=== PATIENT | female | born 1995 | race Caucasian/White ===

== ENCOUNTER 2019-12-19 08:00 | Outpatient (CLI) | payer BC ==
[2019-12-20 10:21] LABS: MUDS CUTOFF CONCENTRATIONS CUTOFF CONC BELOW:
[2019-12-20 10:29] LABS: BILIRUBIN,URINE NEGATIVE (NEGATIVE); CLARITY,URINE CLOUDY (CLEAR); GLUCOSE, URINE (UA) NEGATIVE (NEGATIVE); KETONES,URINE (UA) NEGATIVE (NEGATIVE); LEUKOCYTE ESTERASE, URINE NEGATIVE (NEGATIVE); NITRITE,URINE NEGATIVE (NEGATIVE); OCCULT BLOOD,URINE SMALL (NEGATIVE); PH,URINE 5.5 PH (5.0-7.5); PROTEIN,URINE NEGATIVE (NEGATIVE); UROBILINOGEN,URINE 0.2 (NORMAL) E.U./dL (NORMAL)
[2019-12-20 10:37] LABS: AMORPHOUS SEDIMENT,UR Moderate /LPF; BACTERIA,URINE Few /HPF (None Seen); RBC,URINE 0-5 /HPF (0-5); SQUAMOUS EPITHELIAL CELL,UR FEW Squamous (<= Few)
[2019-12-20 10:38] LABS: AMPHETAMINE SCREEN,URINE NEGATIVE (NEGATIVE); BENZODIAZEPINES SCREEN, URINE NEGATIVE (NEGATIVE); COCAINE SCREEN URINE NEGATIVE (NEGATIVE); METHADONE SCREEN, URINE NEGATIVE (NEGATIVE); METHAMPHETAMINES SCREEN, URINE NEGATIVE (NEGATIVE); OPIATE SCREEN, URINE NEGATIVE (NEGATIVE); OXYCODONE SCREEN, URINE NEGATIVE (NEGATIVE); PROPOXYPHENE SCREEN, URINE NEGATIVE (NEGATIVE); TRICYCLIC ANTIDEPRESSANT,URINE NEGATIVE (NEGATIVE)
== END 2019-12-19 23:59 | disposition home or self-care (01) ==
LOC: LAB.R 08:00
PROVIDERS: ATTEND Obstetrics & Gynecology
DX: Z36.89 Encounter for other specified antenatal screening (principal)
CPT/HCPCS: 80306; 81001; 87086

== ENCOUNTER 2019-12-24 11:45 | Outpatient (CLI) | payer BC ==
[2019-12-24 18:24] LABS: BASOPHILS # (AUTO) 0.1 10^3/uL (0.0-0.1); BASOPHILS % (AUTO) 0.5 %; EOSINOPHILS % (AUTO) 0.4 %; HGB - HEMOGLOBIN 13.8 g/dL (12.0-16.0); LYMPHOCYTES # (AUTO) 1.6 10^3/uL (1.5-3.5); LYMPHOCYTES % (AUTO) 14.9 %; MEAN CORPUSCULAR HEMOGLOBIN 29.4 pg (27.0-31.0); MEAN CORPUSCULAR HGB CONC 32.6 g/dL (32.0-36.0); MEAN CORPUSCULAR VOLUME 90.2 fL (81.0-99.0); MEAN PLATELET VOLUME 11.2 fL (7.9-10.8); MONOCYTES # (AUTO) 0.6 10^3/uL (0.0-1.0); MONOCYTES % (AUTO) 5.6 %; NEUTROPHILS # (AUTO) 8.3 10^3/uL (1.5-6.6); NEUTROPHILS % (AUTO) 78.1 %; PLT - PLATELET COUNT 329 10^3/uL (130-450); RED BLOOD COUNT 4.69 10^6/uL (4.20-5.40); RED CELL DISTRIBUTION WIDTH 13.3 % (12.0-15.0); WHITE BLOOD COUNT 10.7 x10^3/uL (4.8-10.8)
[2019-12-25 09:55] LABS: HIV AG/AB 4TH GEN NON-REACTIVE (NON-REACTIVE)
[2019-12-25 13:04] LABS: HEPATITIS B SURFACE ANTIGEN NON-REACTIVE (NON-REACTIVE)
== END 2019-12-24 23:59 | disposition home or self-care (01) ==
LOC: LAB.WCP 11:45
PROVIDERS: ATTEND Obstetrics & Gynecology
DX: Z36.89 Encounter for other specified antenatal screening (principal)
CPT/HCPCS: 36415; 81599; 85025; 86762; 86850; 86900; 86901; 87340; 87389; 87522

== ENCOUNTER 2020-01-27 09:55 | Outpatient (CLI) | payer BC | END 2020-01-27 23:59 | disposition home or self-care (01) | LOC: LAB.WCP 09:55 | PROVIDERS: ATTEND Obstetrics & Gynecology | DX: Z34.80 Encounter for supervision of other normal pregnancy, unspecified trimester (principal) | CPT/HCPCS: 36415; 81511; 81599 ==

== ENCOUNTER 2020-02-04 16:27 | Emergency (ER) | payer BC ==
[2020-02-04 18:01] LABS: BILIRUBIN,URINE NEGATIVE (NEGATIVE); GLUCOSE, URINE (UA) NEGATIVE (NEGATIVE); KETONES,URINE (UA) NEGATIVE (NEGATIVE); LEUKOCYTE ESTERASE, URINE NEGATIVE (NEGATIVE); NITRITE,URINE NEGATIVE (NEGATIVE); OCCULT BLOOD,URINE TRACE-LYSE (NEGATIVE); PROTEIN,URINE TRACE mg/dL (NEGATIVE); UROBILINOGEN,URINE 0.2 (NORMAL) E.U./dL (NORMAL)
[2020-02-04 18:02] LABS: CLARITY,URINE CLEAR (CLEAR)
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
[2020-02-04 19:29] VITALS: BP 126/78
== END 2020-02-04 19:29 | disposition home or self-care (01) ==
LOC: ED 16:27
DX: O99.89 Other specified diseases and conditions complicating pregnancy, childbirth and the puerperium (principal); R10.30 Lower abdominal pain, unspecified; W01.0XXA Fall on same level from slipping, tripping and stumbling without subsequent striking against object, initial encounter; Y93.02 Activity, running; Z3A.16 16 weeks gestation of pregnancy
CPT/HCPCS: 81001; 81003; 81599; 86900; 86901; 87086; 99283; 99284

== ENCOUNTER 2020-02-25 12:01 | Outpatient (CLI) | payer BC ==
--- NOTE | 2020-02-26 15:11 | Ultrasound Report ---
PROCEDURE: OB Detailed Eval INDICATIONS: SUPERVIOSION OF NORMAL OUTSIDE/PRIOR DATING DATA: Last menstrual period (LMP): 10/10/2019. LMP-based estimated date of delivery (KYLAH): 07/16/2020 . First dating scan (date and location): 12/02/2019 at . Estimated date of delivery (KYLAH) from first dating scan: 07/19/2020. TECHNIQUE: Real-time scanning was performed of the fetus, with image documentation and biometric measurements. Endovaginal scanning: Not performed COMPARISON: OB Ultrasound, 12/02/2019. FINDINGS: General: A single living intrauterine gestation is present. Presentation: Transverse at in the right upper quadrant Placenta: Placental position is anterior and low lying measuring 1.1 cm from the internal os. Amniotic fluid index: 8 cm; largest pocket, 3.7 cm. 2% for gestational age. heart rate: 140 beats per minute. Maternal cervical canal: 5.6 cm long; normal length is 2.5 cm or more. biometrics: Biparietal diameter: 18 weeks 3 days Head circumference: 19 weeks 1 day Abdominal circumference: 19 weeks 1 day Femur length: 19 weeks 2 days Estimated gestational age from initial scan: 19 weeks 2 days. Composite gestational age from present scan: 19 weeks 1 day Estimated weight and percentile: 283 gm; 44% Measurement variability in biometric dating: +/- 10 days from 12-20 weeks gestation, +/- 2 weeks from 20-30 weeks gestation, +/- 3 weeks at 30 weeks gestation or later. Anatomic survey: Neuro: Ventricles are normal at less than 10 mm. Cisterna magna is normal at 3-11 mm. Cerebellum i s normal in size and morphology. Nuchal skin fold: Normal at less than 6 mm between 14 and 20 weeks gestational age. Face: Nose and lips, facial profile are normal. Spine: No evidence for spina bifida. Heart: 4-chambered heart is present. The ventricular outflow tracts are not well seen. Diaphragm: Diaphragm is intact. Stomach: Left-sided stomach is present. Kidneys: No hydronephrosis. Normal is less than 5 mm in 2nd trimester, less than 7 mm in 3rd trimester. Cord: 3 vessel cord has orthotopic insertion. Bladder: Normal in size. Extremities: All 4 extremities are visualized. IMPRESSION: 1. A single living intrauterine gestation with appropriate interval growth. 2. Low-lying placenta measuring 1.1 cm from the internal os. 3. Oligohydramnios with KELLI at the 2nd percentile. 4. cardiac outflow tracts, spine and cord insertion are not well seen. The result was discussed with LAMBERTO Forrester CNM. Reviewed by: Elliot Lovett MD on 02/26/2020 3:10 PM PDT Approved by: Elliot Lovett MD on 02/26/2020 3:10 PM PDT Station ID: [id number]
== END 2020-02-25 12:02 | disposition home or self-care (01) ==
LOC: DI 12:01
PROVIDERS: ATTEND Advanced Practice Midwife
DX: O44.42 Low lying placenta NOS or without hemorrhage, second trimester (principal); O41.02X0 Oligohydramnios, second trimester, not applicable or unspecified; Z3A.19 19 weeks gestation of pregnancy
CPT/HCPCS: 76811

== ENCOUNTER 2020-02-26 07:00 | Outpatient (CLI) | payer BC ==
[2020-02-26 17:18] LABS: RUPTURE OF MEMBRANES PLUS NEGATIVE (NEGATIVE)
== END 2020-02-26 23:59 | disposition home or self-care (01) ==
LOC: LAB.R 07:00
PROVIDERS: ATTEND Obstetrics & Gynecology
DX: O41.02X0 Oligohydramnios, second trimester, not applicable or unspecified (principal)
CPT/HCPCS: 84112

== ENCOUNTER 2020-04-28 11:55 | Outpatient (CLI) | payer BC ==
[2020-04-28 18:36] LABS: HGB - HEMOGLOBIN 11.7 g/dL (12.0-16.0); MEAN CORPUSCULAR HEMOGLOBIN 28.2 pg (27.0-31.0); MEAN CORPUSCULAR HGB CONC 31.5 g/dL (32.0-36.0); MEAN CORPUSCULAR VOLUME 89.6 fL (81.0-99.0); MEAN PLATELET VOLUME 11.5 fL (7.9-10.8); RED BLOOD COUNT 4.15 10^6/uL (4.20-5.40); RED CELL DISTRIBUTION WIDTH 13.2 % (12.0-15.0); WHITE BLOOD COUNT 11.1 x10^3/uL (4.8-10.8)
== END 2020-04-28 23:59 | disposition home or self-care (01) ==
LOC: LAB.WCP 11:55
PROVIDERS: ATTEND Obstetrics & Gynecology
DX: Z34.80 Encounter for supervision of other normal pregnancy, unspecified trimester (principal)
CPT/HCPCS: 36415; 82950; 85027

== ENCOUNTER 2020-05-18 10:19 | Outpatient (CLI) | payer BC ==
[2020-05-18 11:16] VITALS: BP 129/71
--- NOTE | 2020-05-18 13:07 | Ultrasound Report ---
PROCEDURE: Pelvic Limited or F/U INDICATIONS: Incisional pain TECHNIQUE: Real-time transabdominal scanning was performed of the region of interest, with image documentation. COMPARISON: None. FINDINGS: The region of interest is the scar line. At this site, no masses, fluid collecti ons, or abnormal vascularity can be seen. IMPRESSION: No significant ultrasound abnormality seen along the scar line. Note: Concordant preliminary findings given by the instrumental teacher upon the completion of the examination to nurse caring for the patient. Reviewed by: Brayan Rock MD on 05/18/2020 12:05 PM [facility] Approved by: Brayan Rock MD on 05/18/2020 12:05 PM [facility] Station ID: [id number]
--- NOTE | 2020-05-19 17:00 | PROVIDER PROGRESS NOTE ---
- HPI Chief Complaint: Other (Patient is a 25 yo at 31+4 wga here with pain at her CS incision. Reported that she has been having cramping pain at her incision site. No VB or LOF. Does not feel like contractions. Rates pain 4/10. Started last night but has improved over period of observation.) Current : Current EDU 07/16/20 Gestation 31 Weeks and 4 Days 2 Para 1 Vital Signs Temperature 99.0 F 05/18/20 11:08 Heart Rate 108 H 05/18/20 11:08 Respiratory Rate 16 05/18/20 11:08 Blood Pressure 129/71 05/18/20 11:08 O2 Saturation 100 05/18/20 11:08 Temperature 99.0 F 05/18/20 11:08 Heart Rate 108 H 05/18/20 11:08 Respiratory Rate 16 05/18/20 11:08 Blood Pressure 129/71 05/18/20 11:08 O2 Saturation 100 05/18/20 11:08 - Exam GEN: NAD CV: RRR at time of exam RESP: CTAB ABD: gravid, S&NT. No point tenderness at incision or at deep palpation of MARY EXT: WWP PSYCH: appropriate affect NEURO: A&O - Procedures OB Procedure Performed: NST Diagnosis/Indication for NST: labor NST Procedure: NST Procedure Start Date 05/18/20 Start Time 10:36 Stop Time 10:56 Vibroacoustic Stimulation Used No Patient States Movement Yes CAT I tracing TOCO: quiet Service Date of procedure: 05/18/20 Procedure Details: Patient was observed in triage TOCO is quiet with no evidence of labor Formal US of uterine scar was obtained. No evidence of rupture or thinning Exam reassuring. UA pending - Plan Plan: Symptoms resolved without intervention Reassuring us of uterine scar Cat I/AGA tracing DX: false labor vs abdominal pain Warning signs reviewed. Patient discharge to home
== END 2020-05-18 13:28 | disposition home or self-care (01) ==
LOC: WFO 10:19 → FBP 10:20 → WFO 13:28
PROVIDERS: ATTEND Obstetrics & Gynecology
DX: O99.891 Other specified diseases and conditions complicating pregnancy (principal); R10.2 Pelvic and perineal pain; O34.219 Maternal care for unspecified type scar from previous cesarean delivery; Z3A.31 31 weeks gestation of pregnancy
CPT/HCPCS: 59025; 99214

== ENCOUNTER 2020-06-23 07:00 | Outpatient (CLI) | payer BC | END 2020-06-23 23:59 | disposition home or self-care (01) | LOC: LAB.R 07:00 | PROVIDERS: ATTEND Obstetrics & Gynecology | DX: Z36.85 Encounter for antenatal screening for Streptococcus B (principal) | CPT/HCPCS: 87797 ==

== ENCOUNTER 2020-07-02 14:48 | Outpatient (CLI) | payer BC ==
[2020-07-02 15:30] LABS: BASOPHILS % (AUTO) 0.4 %; EOSINOPHILS # (AUTO) 0.1 10^3/uL (0.0-0.7); EOSINOPHILS % (AUTO) 0.5 %; HCT - HEMATOCRIT 36.3 % (37.0-47.0); HGB - HEMOGLOBIN 11.5 g/dL (12.0-16.0); LYMPHOCYTES # (AUTO) 1.3 10^3/uL (1.5-3.5); LYMPHOCYTES % (AUTO) 12.8 %; MEAN CORPUSCULAR HEMOGLOBIN 27.2 pg (27.0-31.0); MEAN CORPUSCULAR HGB CONC 31.7 g/dL (32.0-36.0); MEAN CORPUSCULAR VOLUME 85.8 fL (81.0-99.0); MEAN PLATELET VOLUME 11.6 fL (7.9-10.8); MONOCYTES # (AUTO) 0.8 10^3/uL (0.0-1.0); MONOCYTES % (AUTO) 8.3 %; NEUTROPHILS # (AUTO) 7.7 10^3/uL (1.5-6.6); NEUTROPHILS % (AUTO) 77.7 %; PLT - PLATELET COUNT 270 10^3/uL (130-450); RED BLOOD COUNT 4.23 10^6/uL (4.20-5.40); RED CELL DISTRIBUTION WIDTH 13.5 % (12.0-15.0); WHITE BLOOD COUNT 9.9 x10^3/uL (4.8-10.8)
== END 2020-07-02 14:49 | disposition home or self-care (01) ==
LOC: LAB 14:48
PROVIDERS: ATTEND Obstetrics & Gynecology
DX: O34.211 Maternal care for low transverse scar from previous cesarean delivery (principal); Z20.828 Contact with and (suspected) exposure to other viral communicable diseases; Z3A.00 Weeks of gestation of pregnancy not specified
CPT/HCPCS: 36415; 85025

== ENCOUNTER 2020-07-07 08:45 | Outpatient (CLI) | payer BC | END 2020-07-07 08:46 | disposition home or self-care (01) | LOC: LAB 08:45 | PROVIDERS: ATTEND Physician Assistant | DX: Z01.812 Encounter for preprocedural laboratory examination (principal); O34.211 Maternal care for low transverse scar from previous cesarean delivery | CPT/HCPCS: 36415; 86850; 86900; 86901 ==

== ENCOUNTER 2020-07-09 05:22 | Inpatient (IN) | payer BC ==
[2020-07-09] MEDS ORDERED: ceFAZolin 2 GM/50 ML 2 GM/50 ML BAG IV ONE (05:48)
[2020-07-09] MEDS ORDERED: ACETAMINOPHEN 1,000 MG/100 ML 100 ML IV ONE (05:56)
[2020-07-09] MEDS ORDERED: LACTATED RINGERS 1,000 ML IV SCH (06:00)
[2020-07-09] MEDS ORDERED: BUPIVACAINE 0.5%-EPI 1:200000 PF 30 ML VIAL ONE (07:32)
--- NOTE | 2020-07-09 07:37 | HISTORY & PHYSICAL EXAMINATION ---
Admit History - Visit Reason Visit Reason: Other (Scheduled) - : 2 Parity: 1 Care: positive: [facility] Risk/History: positive: Previous Smoking Status: Never smoker - Mother's Labs Mother's Blood Type: positive: A Mother's RH: positive: Positive - Other Maternal History Other Maternal History: Patient is a 25 yo at 39+0 wga here for scheudled repeat CS. + FM. No LOF.VB/CTX. No changes in health hx since time of prior exam. Vital Signs: Patient Profile: 25 Years Old Female Height: 68 inches Weight: 259 pounds BMI: 39.52 BP sittin / 72 Cuff size: regular Vitals Entered By: JAVIER Voss (July 02, 2020 8:53 AM) Meds Reviewed: Done Allergies Reviewed: Done Past Medical History: Asthma only with respiratory infections. Past Surgical History: [place]osed[place] teeth Flowsheet View for Follow-up Visit Estimated weeks of gestation: 38 0/7 Weight: 259 Blood pressure: 114 / 72 Fundal height: 39 FHR: 153 Vaginal bleeding: no Vaginal discharge: no activity: yes Labor symptoms: no position: vertex Next visit: 1 wk Comment: Reviewed R/B/A for CS today. Written informed consenr was obtained. Confirmed that she does not want a BTL. Would like drape dropped at delivery. 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 Past Medical History: Reviewed and updated today: Asthma only with respiratory infections. Past Surgical History: [place] teeth Dating: LMP 10/10/2019 gives KYLAH 07/16/2020. Ultrasound: 12/02/2019 at 7 weeks 1 day gives KYLAH of 07/19/2020; consistent with dates. Definitive dating 07/16/2020. Female- Arielli A pos/ub imm Genetic testing: QUAD wnl FAS wnl, had FU US with MFM. KELLI wnl despite reports of 2%ile Tdap complete FLu: declines Glucola 127. HCT 37.2 HSV: Denies. GBS neg Breast pump prescription: given Mode of delivery repeat . CS consent obtained today Does NOT want BTL. Considering Nexplanon vs IUD Pap smear 12/19/19 wnl Meds/Allgy - Home Medications Home Medications: Ambulatory Orders Medication Instructions Recorded Confirmed Medroxyprogesterone Acetate 150 mg IM ONCE 01/13/17 01/13/17 [Depo-Provera] - Allergies Allergies/Adverse Reactions: Allergies Allergy/AdvReac Type Severity Reaction Status Date / Time Penicillins Allergy Hives Verified 07/09/20 06:25 Review of Systems - Other Findings Other Findings: As per HPI, otherwise remaining systems are negative. Physical - Abdominal Exam Vital Signs: Temp Pulse Resp BP Pulse Ox 98.1 F 80 22 115/71 100 07/09/20 06:12 07/09/20 06:12 07/09/20 06:12 07/09/20 06:12 07/09/20 06:12 Contraction Frequency (min/apart): irregular Contraction Intensity: positive: Mild - Monitoring Heart Rate Baseline: 135 mod falguni 15x15 accels after VAS, no decels - Other Notes Labor Progress Note/Additional Text: GEN: NAD HEENT: NCAT CV: RR RESP; nl effort ABD: gravid, S&NT EXT: WWP NEURO: A&O PSYCH: appropriate affect Plan for Labor - Plan For Labor Plan for Labor: 25 yo at 39+0 wga here for repeat CS Reviewed risks/benefits/alternatives to Risks include, but are not limited to, bleeding, infection, damage to neatby tissue and organs. On average, EBL of up to 1 liter is considered within normal limits for CS. Risks of blood transfusion include infection Risk of HIV 1/2million nationwide Risk of Hepatitis 1/1 million Risks of transfusion reaction Infection risk moderate given clean/contaminated nature of procedure and IV antibiotics will be given. Damage to nearby tissue and organs including bladder, bowel, ureters, blood vessels, nerves, and fetus Damage may be noted intra-op and may be delayed until after the procedure is complete Reviewed management of complications and efforts to avoid such outcomes but reviewed that they may occur despite our best efforts Written informed consent obtained.
[2020-07-09] MEDS ORDERED: OXYTOCIN/SODIUM CHLORIDE 500 ML IV PRN (09:55)
[2020-07-09] MEDS ORDERED: ONDANSETRON ODT 4 MG TABLET TL PRN (09:55)
[2020-07-09] MEDS ORDERED: SIMETHICONE CHEW 80 MG TABLET PO PRN (09:55)
[2020-07-09] MEDS ORDERED: SODIUM CHLORIDE FLUSH 0.9% 10 ML SYRINGE IVP PRN (09:55)
[2020-07-09] MEDS ORDERED: CALCIUM CARBONATE CHEW 500 MG TABLET PO PRN (09:57)
--- NOTE | 2020-07-09 09:59 | OPERATIVE REPORT ---
Operative Report - General Admit Date: 07/09/20 Planned Procedure: Repeat low transverse Pre-Op Diagnosis: IUP at 39+1 wga, history of prior Procedure Performed: Repeat low transverse Post Op Diagnosis: Same and delivery of term gestation - Procedure Note Primary Surgeon: Yolanda Vidal MD Secondary Surgeon: LAMBERTO Hernandez CNM Anesthesia Provider: URI Blakely Anesthesia Technique: Epidural Pathology: Placenta for routine discard IV Fluids (mL): 1,700 Estimated Blood Loss (mL): 600 Urine Output (mL): 200 Indications: Patient is a 25 yo at 39+0 wga here for scheduled repeat CS. Findings: Normal uterus, tubes, and ovaries. Female infant in vertex presentation with Apgars of 9/10. Complications: None - Other Other Information/Narrative: Risks benefits and alternatives of the procedure were discussed. Written informed consent was obtained. Patient was taken to the operating room where spinal anesthesia was placed and found to be adequate. She was prepped and draped in the usual sterile fashion in the dorsal supine position with a leftward tilt. Downs catheter was in place. SCDs were in place and activated. Cefazolin 2 g IV was given as a preoperative antibiotic. Preoperative timeout was performed. . A Pfannenstiel incision was made in the skin with a scalpel and carried through the underlying layer of fascia in a combination of sharp and blunt dissection. The fascia was incised in the midline, and the incision was extended laterally with the Linares scissors. The superior aspect of the fascial incision was grasped with the Isabela clamps, elevated, and the underlying rectus muscles were dissected off bluntly and sharply using the Linares scissors. Attention was then turned to the inferior aspect of the incision which in a similar fashion was grasped, tented up with Isabela clamps, and the underlying rectus muscles dissected off bluntly and sharply using Linares scissors. The rectus muscles were then in the midline. The peritoneum was identified, tented up, and entered bluntly. The peritoneal incision was extended superiorly and inferiorly with good visualization of the bladder. The bladder that blade was then inserted. A bladder flap was not created. The lower uterine segment of the uterus was identified, and incised in a transverse fashion with a scalpel. The uterus was entered bluntly. The uterine incision was extended in a craniocaudal fashion by manual stretch. The bladder blade was removed. The was delivered from from vertex position. Baby was wrapped in a warm sterile towel. Delayed cord clamping was performed. After cessation of pulsations, the cord was clamped x2 and cut. The infant was handed off to the waiting pediatricians. The placenta was removed with manual expression. The uterus was not exteriorized and cleared of all clots clots and debris via manual swipe using Ray-Miryam x2. The uterine incision was then repaired in a running locked fashion using 0 Vicryl suture. The incision was reinforced with a running imbricating layer again using 0-Vicryl suture. Excellent hemostasis was obtained. The gutters were cleared of all clots and debris. The pelvis was irrigated with sloppy wet lap sponges. The uterine defect was well visualized in normal anatomic position it was noted again to be hemostatic. The peritoneum was then reapproximated with 2-0 Vicryl in a running fashion. The rectus muscles were then reapproximated using interrupted [id number] sutures using 2-0 Chromic. Good hemostasis was noted. The fascia was then closed using 0 Vicryl in a running fashion starting from the left lateral edge to the midline. A second suture was used to close the fascia in a running fashion starting from the right lateral edge and meeting in the midline, agian using 0-Vicryl. The subcutaneous tissue was then irrigated and cl osed using 2-0 chromic in a running subcutaneous suture. A total of 4 cc of 1% lidocaine with epinephrine was injected into the suture line prior to making the incision Skin was closed in a running subcuticular suture using 4-0 Monocryl. Steri-Strips were applied to reinforce the incsion and dressing was applied. CONTACT FINGER ASSEMBLER administered a TAP lock after the procedure. Procedure was well-tolerated and without complication. Sponge lap and needle counts were correct x2. Patient was taken to recovery room in stable condition. LAMBERTO Forrester CNM assisted with retraction, delivery of the , and suturing.
[2020-07-09] MEDS: oxyCODONE 5 MG TABLET PO PRN ×2 (12:17→22:28)
[2020-07-09] MEDS: LACTATED RINGERS 1,000 ML IV SCH (15:45)
[2020-07-09] MEDS: KETOROLAC 30 MG/ML VIAL IVP SCH ×2 (15:53→22:21)
[2020-07-09] MEDS: ACETAMINOPHEN 500 MG TABLET PO SCH ×2 (15:53→23:56)
[2020-07-09] MEDS ORDERED: SODIUM CHLORIDE FLUSH 0.9% 10 ML SYRINGE IVP SCH (17:00)
[2020-07-10] MEDS: LACTATED RINGERS 1,000 ML IV SCH (01:21)
[2020-07-10] MEDS: oxyCODONE 5 MG TABLET PO PRN ×5 (02:59→23:16)
[2020-07-10] MEDS: KETOROLAC 30 MG/ML VIAL IVP SCH (04:21)
[2020-07-10 08:20] LABS: BASOPHILS % (AUTO) 0.3 %; EOSINOPHILS % (AUTO) 0.2 %; HGB - HEMOGLOBIN 10.2 g/dL (12.0-16.0); LYMPHOCYTES # (AUTO) 2.5 10^3/uL (1.5-3.5); LYMPHOCYTES % (AUTO) 16.5 %; MEAN CORPUSCULAR HEMOGLOBIN 27.3 pg (27.0-31.0); MEAN CORPUSCULAR HGB CONC 32.1 g/dL (32.0-36.0); MEAN CORPUSCULAR VOLUME 85.3 fL (81.0-99.0); MEAN PLATELET VOLUME 11.8 fL (7.9-10.8); MONOCYTES # (AUTO) 1.2 10^3/uL (0.0-1.0); MONOCYTES % (AUTO) 7.9 %; NEUTROPHILS # (AUTO) 11.1 10^3/uL (1.5-6.6); NEUTROPHILS % (AUTO) 74.6 %; PLT - PLATELET COUNT 242 10^3/uL (130-450); RED BLOOD COUNT 3.73 10^6/uL (4.20-5.40); RED CELL DISTRIBUTION WIDTH 13.9 % (12.0-15.0); WHITE BLOOD COUNT 14.9 x10^3/uL (4.8-10.8)
[2020-07-10] MEDS: DOCUSATE SODIUM 100 MG CAPSULE PO SCH ×3 (09:17→20:14)
[2020-07-10] MEDS: ACETAMINOPHEN 500 MG TABLET PO SCH ×2 (09:17→17:36)
--- NOTE | 2020-07-10 13:33 | PROVIDER PROGRESS NOTE ---
Subjective - Prog Note Date Prog Note Date: 07/10/20 Prog Note Time: 10:30 - Subjective Subjective: Patient is doing well. Has been up and out of bed and has voided once. Pain well managed. Wants to reduce oxycodone use. Tolerating po. Latch ok with and BF going well although milk volume remains low. Minimal lochia. Objective - Vital Signs/Intake & Output Vital Signs: 98.6 77 107/53 22 98% Intake & Output: Intake & Output 07/07/20 07/08/20 07/09/20 07/10/20 23:59 23:59 23:59 23:59 Intake Total 1840 Output Total 970 430 Balance -970 1410 - Objective General Appearance: positive: No acute distress Neck: positive: Nml inspection Respiratory: positive: No respiratory distress Cardiovascular: positive: Other (RR) Abdomen: positive: Non-tender, Other (FF below umbi. Incision with small amount of old drainage. Dressing in place. Otherwise CDI) Skin: positive: Color nml, Warm, Dry Extremities: positive: Non-tender, No pedal edema Neurologic/Psychiatric: positive: Oriented x3 - Lab Results Fish Bones: 07/10/20 05:00 Other Labs: Lab Results x24hrs 07/10/20 Range/Units 05:00 WBC 14.9 H (4.8-10.8) x10^3/uL RBC 3.73 L (4.20-5.40) 10^6/uL Hgb 10.2 L (12.0-16.0) g/dL Hct 31.8 L (37.0-47.0) % MCV 85.3 (81.0-99.0) fL MCH 27.3 (27.0-31.0) pg MCHC 32.1 (32.0-36.0) g/dL RDW 13.9 (12.0-15.0) % Plt Count 242 (130-450) 10^3/uL MPV 11.8 H (7.9-10.8) fL Neut # (Auto) 11.1 H (1.5-6.6) 10^3/uL Lymph # (Auto) 2.5 (1.5-3.5) 10^3/uL [place] # (Auto) 1.2 H (0.0-1.0) 10^3/uL Eos # (Auto) 0.0 (0.0-0.7) 10^3/uL Baso # (Auto) 0.0 (0.0-0.1) 10^3/uL Absolute Nucleated RBC 0.00 x10^3/uL Nucleated RBC % 0.0 /100WBC Assessment/Plan - Problem List (1) delivery delivered Impression: POD#1: Progressing well along goals for discharge Encouraged additional ambulation Anticipate DC home in am Reviewed DC instructions in anticipation of DC tomorrow Cont inpatient care
[2020-07-10] MEDS: IBUPROFEN 600 MG TABLET PO SCH ×3 (14:56→22:00)
--- NOTE | 2020-07-10 22:02 | Discharge Plan ---
Discharge Plan Problem Reviewed?: Yes Disposition: Home, Self Care Prescriptions: Docusate Sodium 100Mg Capsule [Colace 100Mg Capsule] 100 - 200 mg PO BID PRN #60 capsule PRN Reason: Constipation Ibuprofen [Motrin] 600 mg PO Q6H PRN #90 tab PRN Reason: Pain oxyCODONE [Roxicodone] 5 mg PO Q4H PRN #24 tablet PRN Reason: Pain Acetaminophen [Tylenol] 650 mg PO Q6H PRN #90 tablet PRN Reason: PRN PAIN &/OR FEVER Diet: Regular Activity Restrictions: Additional Comments Driving Restrictions: Yes (No driving while on narcotics) Additional Instructions or Follow Up instructions: Nothing in the vagina for 6 weeks: No intercourse, tampons, douching Call for: -Fever greater than 100.5 -Pain that does not improve with pain medication -Heavy bleeding in which you are soaking a pad an hour for 2 hours in a row -Incision becomes hot, hard, red, starts to open, or leaks foul smelling fluid No lifting more than 10# for 4 weeks [address] while on narcotics Ok to shower. Let water run over the incision. Do not soap, scrub, or apply lotion. Pat dry with a clean towel or casi a executive chairman. The surgical stickers will start to peel off and you can remove them when they do. Otherwise, the provider will remove them at your one week follow-up appointment. OK to use an unscented sanitary napkin or clean washcloth to keep the incision dry if the belly folds over the incision. No Smoking: If you smoke, Please STOP! Call for help. Follow-up with: Natalie Vidal MD [Provider Admit Priv/Credential] -
[2020-07-11] MEDS: KETOROLAC 30 MG/ML VIAL IVP SCH (00:19)
[2020-07-11] MEDS: ACETAMINOPHEN 500 MG TABLET PO SCH ×2 (00:20→06:20)
[2020-07-11] MEDS: oxyCODONE 5 MG TABLET PO PRN (06:20)
[2020-07-11] MEDS: IBUPROFEN 600 MG TABLET PO SCH (06:20)
[2020-07-11 09:00] VITALS: BP 113/67
--- NOTE | 2020-07-11 09:46 | PROVIDER PROGRESS NOTE ---
Subjective - Subjective Subjective: S: Patient eating, urinating, ambulating, and well. No heavy bleeding or mood problems. Pain is under good control. Objective - Vital Signs/Intake & Output Vital Signs: Vital Signs x48h Temp Pulse Resp BP Pulse Ox 07/11/20 08:55 97.9 F 80 16 113/67 100 07/11/20 08:19 70 18 104/60 99 Intake & Output: Intake & Output 07/08/20 07/09/20 07/10/20 07/11/20 23:59 23:59 23:59 23:59 Intake Total 1840 Output Total 970 780 Balance -970 1060 - Lab Results Fish Bones: 07/10/20 05:00 - Other Results/Comments Other Results/Comments: Alert, smiling, no apparent distress Abd soft, nontender, non-distended Fundus nontender at umbilicus Incision well-approximated with steri strips that have some blood on them. No e rythema. Trace lower extremity edema Impression and plan: 25yo P2 POD #2 s/p repeat , doing well, discharge home with routine care. consult tomorrow as using shield. A+, RI, s/p varicella vax s/p Tdap, offered flu vax again today and declines
--- NOTE | 2020-07-11 09:52 | Discharge Plan ---
Discharge Plan Problem Reviewed?: Yes Disposition: Home, Self Care Condition: Good Prescriptions: Docusate Sodium 100Mg Capsule [Colace 100Mg Capsule] 100 - 200 mg PO BID PRN #60 capsule PRN Reason: Constipation Ibuprofen [Motrin] 600 mg PO Q6H PRN #90 tab PRN Reason: Pain oxyCODONE [Roxicodone] 5 mg PO Q4H PRN #24 tablet PRN Reason: Pain Acetaminophen [Tylenol] 650 mg PO Q6H PRN #90 tablet PRN Reason: PRN PAIN &/OR FEVER Activity Restrictions: Additional Comments Shower Restrictions: No Driving Restrictions: Yes (No driving while on narcotics) Additional Instructions or Follow Up instructions: Nothing in the vagina for 6 weeks: No intercourse, tampons, douching Call for: -Fever greater than 100.5 -Pain that does not improve with pain medication -Heavy bleeding in which you are soaking a pad an hour for 2 hours in a row -Incision becomes hot, hard, red, starts to open, or leaks foul smelling fluid No lifting more than 10# for 4 weeks No driving while on narcotics Ok to shower. Let water run over the incision. Do not soap, scrub, or apply lotion. Pat dry with a clean towel or use a business administration program chair. The surgical stickers will start to peel off and you can remove them when they do. Otherwise, the provider will remove them at your one week follow-up appointment. OK to use an unscented sanitary napkin or clean washcloth to keep the incision dry if the belly folds over the incision. No Smoking: If you smoke, Please STOP! Call for help. Follow-up with: Natalie Vidal MD [Provider Admit Priv/Credential] - (Follow up at 1w and 6w with Dr. Vidal VISIT on 07/12/20)
[2020-07-11] MEDS: DOCUSATE SODIUM 100 MG CAPSULE PO SCH (10:43)
--- NOTE | 2020-07-11 11:24 | Labor Flowsheet ---
Labor Flowsheet Datetime Report Generated by CPN: 07/11/2020 11:23 Datetime: 07/09/2020 12:43 VAGINAL EXAM Membranes Ruptured Date/Time: 07/09/2020 08:25 Membranes Rupture Method: Artificial Amniotic Fluid Color: Clear
--- NOTE | 2020-07-28 09:54 | DISCHARGE SUMMARY ---
Physician: Priyanka Kim MD DATE OF ADMISSION: 07/09/2020 DATE OF DISCHARGE: 07/11/2020 ADMITTING DIAGNOSES: 1. Prior section, desires repeat section 2. Intrauterine at 39 weeks. DISCHARGE DIAGNOSIS: Status post section. PROCEDURE: On 07/09, repeat low-transverse section, uncomplicated. HOSPITAL COURSE: The patient was admitted for her scheduled repeat section. She underwent the surgery, and it was uncomplicated. Her course was healthy and without complications. By day 2, she was requesting discharge home. She was eating, ambulating, urinating, and feeding without difficulties. Her pain was well-controlled, she had no problems with her mood, and n o heavy bleeding. PHYSICAL EXAM: VITAL SIGNS: Afebrile. GENERAL: Alert and smiling, in no apparent distress. ABDOMEN: Soft, nontender, nondistended. Fundus nontender and at the umbilicus. The incision was we ll-approximated with Steri-Strips, but did have some blood on them, but no erythema or induration. EXTREMITIES: There was trace lower extremity edema bilaterally. DISCHARGE DISPOSITION: Home. CONDITION: Good. Follow up at 1 week and 6 weeks. Discharge precautions, routine and postoperative precaut ions given. TD: 07/28/2020 09:17
== END 2020-07-11 10:45 | disposition home or self-care (01) | DRG 788 ==
LOC: WFO 05:22 → FBP 05:32 → WFO 08:54 → FBP 08:55
PROVIDERS: ADMIT Obstetrics & Gynecology; ATTEND Obstetrics & Gynecology
PROC: 10D00Z1 Extraction of Products of Conception, Low, Open Approach (ICD-10-PCS; principal; 2020-07-09)
DX: O34.211 Maternal care for low transverse scar from previous cesarean delivery (principal); Z37.0 Single live birth; Z3A.39 39 weeks gestation of pregnancy
CPT/HCPCS: 85025; A9270; J0131; J0690; J7120